=== PATIENT | male | born 1970 | race Caucasian/White ===

== ENCOUNTER → 2016-03-23 | Outpatient (REF) | payer OTHER ==
[~2016-03-23] MED LIST: /LOR25TA PO; GABA300C2 PO; IBUP80TA PO; OXYC5TAB2 PO; OXYCONTIN PO; PERC7.5T12 PO; PRED20TA PO; ULTR50TA PO; ZIPS25CA PO
[2016-03-23 13:06] LABS: ALBUMIN 3.3 GM/DL (3.2-5.2); ALKALINE PHOSPHATASE 89 U/L (45-117); ALT/SGPT 19 U/L (12-78); ANION GAP 9 MEQ/L (8-16); AST/SGOT 14 U/L (15-37); BILIRUBIN,TOTAL 0.3 MG/DL (0.2-1.0); BLOOD UREA NITROGEN 13 MG/DL (7-18); CALCIUM LEVEL 8.6 MG/DL (8.5-10.1); CARBON DIOXIDE LEVEL 27 MEQ/L (21-32); CHLORIDE LEVEL 107 MEQ/L (98-107); CREATININE FOR GFR 0.89 MG/DL (0.70-1.30); GLOMERULAR FILTRATION RATE > 60.0 (>60); GLUCOSE, FASTING 75 MG/DL (70-105); POTASSIUM SERUM 4.7 MEQ/L (3.5-5.1); SODIUM LEVEL 143 MEQ/L (136-145); TOTAL PROTEIN 6.3 GM/DL (6.4-8.2)
== END ==
LOC: M SFHCPLAZ 09:13
PROVIDERS: ATTEND Nurse Practitioner Family
DX: B35.1 Tinea unguium (principal)

== ENCOUNTER → 2016-05-05 | Outpatient (REF) | payer OTHER ==
[2016-05-05 11:48] LABS: ALBUMIN 3.2 GM/DL (3.2-5.2); ALBUMIN/GLOBULIN RATIO 1.07 (1.00-1.93); ALKALINE PHOSPHATASE 89 U/L (45-117); ALT/SGPT 25 U/L (12-78); ANION GAP 5 MEQ/L (8-16); AST/SGOT 19 U/L (15-37); BILIRUBIN,TOTAL 0.3 MG/DL (0.2-1.0); BLOOD UREA NITROGEN 16 MG/DL (7-18); CALCIUM LEVEL 8.4 MG/DL (8.5-10.1); CARBON DIOXIDE LEVEL 28 MEQ/L (21-32); CHLORIDE LEVEL 110 MEQ/L (98-107); CREATININE FOR GFR 0.87 MG/DL (0.70-1.30); GLOMERULAR FILTRATION RATE > 60.0 (>60); GLUCOSE, FASTING 110 MG/DL (70-105); POTASSIUM SERUM 4.5 MEQ/L (3.5-5.1); SODIUM LEVEL 143 MEQ/L (136-145); TOTAL PROTEIN 6.2 GM/DL (6.4-8.2)
== END ==
LOC: M SFHCPLAZ 10:19
PROVIDERS: ATTEND Nurse Practitioner Family
DX: B35.1 Tinea unguium (principal)

== ENCOUNTER → 2016-08-04 | Outpatient (REF) | payer OTHER ==
[2016-08-04 11:52] LABS: ALBUMIN 3.1 GM/DL (3.2-5.2); ALBUMIN/GLOBULIN RATIO 1.03 (1.00-1.93); ALKALINE PHOSPHATASE 85 U/L (45-117); ALT/SGPT 20 U/L (12-78); ANION GAP 7 MEQ/L (8-16); AST/SGOT 14 U/L (15-37); BILIRUBIN,TOTAL 0.3 MG/DL (0.2-1.0); BLOOD UREA NITROGEN 20 MG/DL (7-18); CALCIUM LEVEL 8.6 MG/DL (8.5-10.1); CARBON DIOXIDE LEVEL 29 MEQ/L (21-32); CHLORIDE LEVEL 107 MEQ/L (98-107); CREATININE FOR GFR 0.92 MG/DL (0.70-1.30); GLOMERULAR FILTRATION RATE > 60.0 (>60); GLUCOSE, FASTING 87 MG/DL (70-105); POTASSIUM SERUM 4.7 MEQ/L (3.5-5.1); SODIUM LEVEL 143 MEQ/L (136-145); TOTAL PROTEIN 6.1 GM/DL (6.4-8.2)
== END ==
LOC: M LABDRAW1 11:02
PROVIDERS: ATTEND Nurse Practitioner Family
DX: B35.1 Tinea unguium (principal)

== ENCOUNTER 2016-08-17 08:30 | Outpatient (RCR) | payer OTHER | END 2016-08-18 | disposition home or self-care (01) | LOC: M PT 08:30 | PROVIDERS: ATTEND Physical Medicine & Rehabilitation | DX: Z51.89 Encounter for other specified aftercare (principal); M54.5 Low back pain ==

== ENCOUNTER 2016-08-20 14:12 | Emergency (ER) | payer OTHER ==
[~2016-08-20] VITALS: Ht 170.2 cm; Wt 95.3 kg
[2016-08-20 14:12] VITALS: BP 135/86
[2016-08-20] MEDS ORDERED: MIRT45TA PO (14:52)
[2016-08-20] MEDS ORDERED: CYCL10TA (14:52)
[2016-08-20] MEDS ORDERED: TERB250T57 (14:52)
[2016-08-20] MEDS ORDERED: MEDR4PAK PO (15:12)
[2016-08-20] MEDS ORDERED: PERC5TAB6 PO (15:12)
== END 2016-08-20 15:36 | disposition home or self-care (01) ==
LOC: M ED 15:25
DX: M54.42 Lumbago with sciatica, left side (principal); M54.41 Lumbago with sciatica, right side

== ENCOUNTER 2016-08-26 16:12 | Emergency (ER) | payer OTHER ==
[~2016-08-26] VITALS: Ht 170.2 cm; Wt 93.0 kg
[~2016-08-26 16:12] MED LIST changes: +CYCL10TA; +MEDR4PAK PO; +MIRT45TA PO; +PERC5TAB6 PO; +TERB250T57
[2016-08-26] MEDS ORDERED: methylPREDNISolone INJ 125 MG/2 ML VIAL (J2930) IM ONE (17:15)
[2016-08-26] MEDS ORDERED: PRED50TA PO (17:41)
[2016-08-26] MEDS ORDERED: VALI5TAB PO (17:41)
[2016-08-26] MEDS ORDERED: KETOROLAC 60 MG/2 ML VIAL (J1885) IM ONE (18:00)
[2016-08-26 18:29] VITALS: BP 142/90
[2016-08-27] MEDS ORDERED: PERC5TAB6 PO (14:03)
[2016-08-27] MEDS ORDERED: MEDR4PAK PO (14:03)
== END 2016-08-26 18:34 | disposition home or self-care (01) ==
LOC: M ED 17:03
DX: M54.5 Low back pain (principal); G89.29 Other chronic pain

== ENCOUNTER 2016-08-27 12:38 | Emergency (ER) | payer OTHER ==
[~2016-08-27] VITALS: Ht 170.2 cm; Wt 92.1 kg
[2016-08-27 12:38] VITALS: BP 133/81
[~2016-08-27 12:38] MED LIST changes: +PRED50TA PO; +VALI5TAB PO
[2016-08-27] MEDS ORDERED: MEDR4PAK PO (14:03)
[2016-08-27] MEDS ORDERED: PERC5TAB6 PO (14:03)
== END 2016-08-27 14:11 | disposition home or self-care (01) ==
LOC: M ED 13:55
DX: M54.5 Low back pain (principal); G89.29 Other chronic pain

== ENCOUNTER 2016-09-17 18:58 | Emergency (ER) | payer OTHER ==
[~2016-09-17] VITALS: Ht 170.2 cm; Wt 90.6 kg
[2016-09-17 18:58] VITALS: BP 135/81
[~2016-09-17 18:58] MED LIST changes: +PERC5TAB12 PO; -PERC5TAB6 PO; +TERB250T12; -TERB250T57
[2016-09-17] MEDS ORDERED: HYDROmorphone HCL 1 MG/ML SYRINGE (J1170) IM ONE (19:30)
--- NOTE | 2016-09-17 20:16 | REP ---
Clinical: Trauma. Technique: AP, lateral views of the left foot Findings: The osseous structures and joint spaces are intact and normal. There is no evidence for acute fracture or dislocation. Surrounding soft tissues are unremarkable. No subcutaneous emphysema or radiodense foreign body. Impression: Normal examination. No acute fracture or dislocation. Signed by Navarro Jules MD 09/17/2016 08:07 P
--- NOTE | 2016-09-17 20:21 | REP ---
Clinical: Trauma. Technique: AP, lateral, coned-down views of the lumbosacral spine. Comparison: 08/14/2012. Findings: Moderate multilevel degenerative changes include osteophytosis, endplate sclerosis and minimal disc space narrowing. Findings are most pronounced at the L5-S1 level. Alignment and lordosis maintained. No acute fracture / compression injury or subluxation. Impression: Moderate multilevel degenerative changes. No acute fracture / compression injury or subluxation. Signed by Navarro Jules MD 09/17/2016 08:12 P
== END 2016-09-17 19:58 | disposition home or self-care (01) ==
LOC: M ED 18:58
DX: S39.012A Strain of muscle, fascia and tendon of lower back, initial encounter (principal); S90.32XA Contusion of left foot, initial encounter; W01.0XXA Fall on same level from slipping, tripping and stumbling without subsequent striking against object, initial encounter; Y92.018 Other place in single-family (private) house as the place of occurrence of the external cause; Y93.89 Activity, other specified; Y99.8 Other external cause status; G89.29 Other chronic pain; M54.9 Dorsalgia, unspecified; Z79.899 Other long term (current) drug therapy; Z91.040 Latex allergy status; Z91.018 Allergy to other foods; Z87.891 Personal history of nicotine dependence

== ENCOUNTER 2016-11-22 11:22 | Emergency (ER) | payer OTHER ==
[~2016-11-22] VITALS: Ht 167.6 cm; Wt 88.7 kg
[2016-11-22 11:23] VITALS: BP 155/89
== END 2016-11-22 12:32 | disposition left against medical advice (07) ==
LOC: M ED 11:22
DX: H57.10 Ocular pain, unspecified eye (principal); Z53.21 Procedure and treatment not carried out due to patient leaving prior to being seen by health care provider

== ENCOUNTER 2017-03-09 12:07 | Emergency (ER) | payer OTHER ==
[~2017-03-09] VITALS: Ht 167.6 cm; Wt 95.5 kg
[2017-03-09] MEDS ORDERED: NS 1,000 ML IV SCH (12:15)
[2017-03-09] MEDS ORDERED: ASPIRIN 81 MG CHEW TABLET PO ONE (12:15)
[2017-03-09] MEDS ORDERED: NITROGLYCERIN 0.4 MG SUBL TABLET SL PRN (12:15)
[2017-03-09] MEDS ORDERED: MORPHINE 4 MG/ML 1ML SYRINGE IV ONE ×2 (12:30→14:30)
[2017-03-09 12:39] LABS: BASO # 0.1 10^3/uL (0.0-0.2); BASO % 0.7 % (0.0-1.0); EOS # 0.3 10^3/uL (0.0-0.50); EOS % 2.7 % (0.0-3.0); IMMATURE GRANULOCYTE % 0.2 % (0-0); LYMPH # 3.8 10^3/uL (1.5-4.5); MEAN CORPUSCULAR HEMOGLOBIN 30.2 pg (27.0-33.0); MEAN CORPUSCULAR HGB CONC 35.6 g/dl (32.0-36.5); MEAN CORPUSCULAR VOLUME 84.9 fl (80.0-96.0); MONO # 0.9 10^3/uL (0.0-0.8); MONO % 9.6 % (0.0-5.0); NEUTROPHILS # 4.4 10^3/uL (1.8-7.7); NEUTROPHILS % 46.8 % (36.0-66.0); PLATELET COUNT, AUTOMATED 284 10^3/uL (150-450); RED CELL DISTRIBUTION WIDTH 12.8 % (11.5-14.5); WHITE BLOOD COUNT 9.4 10^3/uL (4.0-10.0)
[2017-03-09 12:50] LABS: INR 0.99
[2017-03-09 13:06] LABS: ALBUMIN 3.5 GM/DL (3.2-5.2); ALKALINE PHOSPHATASE 89 U/L (45-117); ALT/SGPT 17 U/L (12-78); ANION GAP 3 MEQ/L (8-16); AST/SGOT 19 U/L (7-37); BILIRUBIN,DIRECT < 0.1 MG/DL (0.0-0.2); BILIRUBIN,TOTAL 0.3 MG/DL (0.2-1.0); BLOOD UREA NITROGEN 13 MG/DL (7-18); CALCIUM LEVEL 8.9 MG/DL (8.5-10.1); CARBON DIOXIDE LEVEL 29 MEQ/L (21-32); CHLORIDE LEVEL 105 MEQ/L (98-107); CREATININE FOR GFR 0.86 MG/DL (0.70-1.30); GLOMERULAR FILTRATION RATE > 60.0 (>60); GLUCOSE, FASTING 100 MG/DL (70-105); POTASSIUM SERUM 4.2 MEQ/L (3.5-5.1); SODIUM LEVEL 137 MEQ/L (136-145); TOTAL PROTEIN 7.4 GM/DL (6.4-8.2)
[2017-03-09] MEDS ORDERED: ISOVUE-370 76% 100ML VIAL (Q9967) As Ordered ONE (13:37)
[2017-03-09] MEDS ORDERED: NORCOTAB PO (15:01)
[2017-03-09 15:47] VITALS: BP 138/85
--- NOTE | 2017-03-09 19:36 | ECGEPIP ---
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
--- NOTE | 2017-03-09 19:53 | REP ---
CHEST, TWO VIEWS: There is no evidence of acute infiltrate. No pleural effusion is seen. The heart is normal in size. The mediastinal silhouette is unremarkable. The visualized osseous structures are intact. IMPRESSION: No acute pulmonary disease. Signed by Fazal Aguilar MD 03/10/2017 08:31 P
--- NOTE | 2017-03-09 20:49 | REP ---
CT pulmonary angiogram: With IV contrast. History: Left-sided chest pain. Question pulmonary embolus. Comparison studies: Today's chest x-ray. Contrast dose: 75 cc's of Isovue [address] technique: Helical scanning is acquired and overlapping 1.5 mm and contiguous 3 mm axial images are reformatted. In addition, a 3-D work station is deployed to generate thick slab maximum intensity projection images in sagittal and coronal imaging projections. CT pulmonary angiographic findings: There is good opacification of the pulmonary arterial tree. There is no CT evidence of pulmonary embolism. There are granulomatous calcified lymph nodes in the right hilus. There are granulomatous calcifications in the right lung and in the spleen. No significant pulmonary nodule or mass lesion is seen. There is a small pleural-based nodule in the major fissure on the left. This is not felt to be suspicious. No infiltrate is seen. No pleural or pericardial effusion is seen. No adrenal lesion is observed. The thoracic aorta enhances homogeneously and is normal in coarse, caliber and contour. No bony destructive lesion is appreciated. Impression: Old granulomatous calcifications. No CT evidence of pulmonary embolism. No other significant abnormality. Signed by Christopher Cornejo MD 03/10/2017 08:07 A
[2017-03-10] MEDS ORDERED: PENI250T57 PO (22:54)
[2017-03-10] MEDS ORDERED: PENI500T PO (22:59)
== END 2017-03-09 15:49 | disposition home or self-care (01) ==
LOC: M ED 12:07
DX: R07.89 Other chest pain (principal); M54.9 Dorsalgia, unspecified; G89.29 Other chronic pain; F17.210 Nicotine dependence, cigarettes, uncomplicated; Z79.899 Other long term (current) drug therapy; Z91.040 Latex allergy status; Z91.018 Allergy to other foods
CPT/HCPCS: 71020; 71275; 80048; 80076; 82550; 82553; 83690; 83880; 84443; 85025; 85379; 85610; 93005; 93041; 94760; 96374; 96376; 99285; Q9967

== ENCOUNTER 2017-03-10 19:44 | Emergency (ER) | payer OTHER ==
[~2017-03-10] VITALS: Ht 167.6 cm; Wt 93.2 kg
[~2017-03-10 19:44] MED LIST changes: +NORCOTAB PO
[2017-03-10 19:45] VITALS: BP 157/82
[2017-03-10] MEDS ORDERED: ASPIRIN 81 MG CHEW TABLET PO ONE (20:30)
[2017-03-10] MEDS ORDERED: GASTROGRAFIN SOLUTION 30ML (Q9963) PO ONE ×2 (20:45→21:15)
[2017-03-10 20:51] LABS: BASO # 0.1 10^3/uL (0.0-0.2); BASO % 0.8 % (0.0-1.0); EOS # 0.4 10^3/uL (0.0-0.50); IMMATURE GRANULOCYTE % 0.2 % (0-0); LYMPH # 3.1 10^3/uL (1.5-4.5); LYMPH % 35.5 % (24.0-44.0); MEAN CORPUSCULAR HEMOGLOBIN 29.5 pg (27.0-33.0); MEAN CORPUSCULAR HGB CONC 34.5 g/dl (32.0-36.5); MEAN CORPUSCULAR VOLUME 85.5 fl (80.0-96.0); MONO # 0.8 10^3/uL (0.0-0.8); MONO % 9.1 % (0.0-5.0); NEUTROPHILS # 4.4 10^3/uL (1.8-7.7); NEUTROPHILS % 50.4 % (36.0-66.0); PLATELET COUNT, AUTOMATED 274 10^3/uL (150-450); RED CELL DISTRIBUTION WIDTH 12.8 % (11.5-14.5); WHITE BLOOD COUNT 8.7 10^3/uL (4.0-10.0)
[2017-03-10] MEDS: MORPHINE 4 MG/ML 1ML SYRINGE IV PRN ×2 (20:56→22:07)
--- NOTE | 2017-03-10 21:00 | REPUSA ---
Clinical history: Chest pain. Comparison: None. Findings: Frontal and lateral views of the chest were obtained. The mediastinum and cardiac silhouett e are within normal limits. The lungs are clear. No pleural effusion or pneumothorax is seen. The oss eous structures and soft tissues are unremarkable. Impression: No acute disease.
[2017-03-10 21:22] LABS: ALBUMIN 3.3 GM/DL (3.2-5.2); ALBUMIN/GLOBULIN RATIO 0.92 (1.00-1.93); ALKALINE PHOSPHATASE 80 U/L (45-117); ALT/SGPT 16 U/L (12-78); ANION GAP 5 MEQ/L (8-16); AST/SGOT 13 U/L (7-37); BILIRUBIN,DIRECT < 0.1 MG/DL (0.0-0.2); BILIRUBIN,TOTAL 0.2 MG/DL (0.2-1.0); BLOOD UREA NITROGEN 13 MG/DL (7-18); CALCIUM LEVEL 8.4 MG/DL (8.5-10.1); CARBON DIOXIDE LEVEL 29 MEQ/L (21-32); CHLORIDE LEVEL 106 MEQ/L (98-107); CREATININE FOR GFR 0.92 MG/DL (0.70-1.30); GLOMERULAR FILTRATION RATE > 60.0 (>60); GLUCOSE, FASTING 83 MG/DL (70-105); POTASSIUM SERUM 4.4 MEQ/L (3.5-5.1); SODIUM LEVEL 140 MEQ/L (136-145); TOTAL PROTEIN 6.9 GM/DL (6.4-8.2)
--- NOTE | 2017-03-10 22:40 | REPUSA ---
CT of the abdomen and pelvis without contrast Clinical statement: Pain. Technique: Multiple axial CT images were obtained from the base of the lungs to the floor of the pelv is utilizing 5 mm axial slices after administration of oral of contrast. Coronal and sagittal reconst ructions were also obtained. Comparison: 10/24/2014.. Findings: Chest: The visualized lung bases are clear. Abdomen: The kidneys are normal in size bilaterally. There is no evidence of hydronephrosis or nephro lithiasis. The liver, spleen, pancreas, gallbladder and adrenal glands are unremarkable. The aorta de monstrates normal caliber and contour. There is no abdominal lymphadenopathy or ascites. Pelvis: The bowel is unremarkable, with no obstructive or inflammatory changes. The appendix is abby l. The urinary bladder is within normal limits. There is no pelvic lymphadenopathy or ascites. The ot her pelvic structures appear unremarkable. Bones: There are no suspicious osseous abnormalities seen. Impression: Unremarkable CT examination of the abdomen and pelvis.
[2017-03-10] MEDS ORDERED: PENICILLIN V POTASSIUM 500 MG TAB PO ONE (22:45)
[2017-03-10] MEDS ORDERED: PENI250T57 PO (22:54)
[2017-03-10] MEDS ORDERED: PENI500T PO (22:59)
--- NOTE | 2017-03-11 17:01 | ECGEPIP ---
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
== END 2017-03-10 23:04 | disposition home or self-care (01) ==
LOC: M ED 19:44
DX: R07.9 Chest pain, unspecified (principal); K02.9 Dental caries, unspecified; K01.1 Impacted teeth; M54.40 Lumbago with sciatica, unspecified side; F17.210 Nicotine dependence, cigarettes, uncomplicated; Z79.899 Other long term (current) drug therapy; Z91.040 Latex allergy status; Z91.018 Allergy to other foods; Z80.0 Family history of malignant neoplasm of digestive organs
CPT/HCPCS: 71020; 74176; 80048; 80076; 82550; 82553; 83690; 85025; 93005; 93041; 94760; 96374; 96376; 99284; Q9963

== ENCOUNTER → 2017-05-02 | Outpatient (CLI) | payer OTHER ==
[2017-05-02 09:24] LABS: HEMATOCRIT 45.4 % (42.0-52.0); HEMOGLOBIN 15.6 g/dl (14.0-18.0); MEAN CORPUSCULAR HEMOGLOBIN 29.5 pg (27.0-33.0); MEAN CORPUSCULAR HGB CONC 34.4 g/dl (32.0-36.5); PLATELET COUNT, AUTOMATED 277 10^3/uL (150-450); RED BLOOD COUNT 5.28 10^6/uL (4.30-6.10); RED CELL DISTRIBUTION WIDTH 13.1 % (11.5-14.5); WHITE BLOOD COUNT 10.6 10^3/uL (4.0-10.0)
[2017-05-02 09:56] LABS: ESTIMATED AVERAGE GLUCOSE 105 MG/DL (60-110); HEMOGLOBIN A1c 5.3 %
[2017-05-02 10:59] LABS: ALBUMIN 3.4 GM/DL (3.2-5.2); ALBUMIN/GLOBULIN RATIO 1.13 (1.00-1.93); ALKALINE PHOSPHATASE 81 U/L (45-117); ALT/SGPT 16 U/L (12-78); ANION GAP 5 MEQ/L (8-16); AST/SGOT 17 U/L (7-37); BILIRUBIN,TOTAL 0.3 MG/DL (0.2-1.0); BLOOD UREA NITROGEN 15 MG/DL (7-18); CALCIUM LEVEL 8.4 MG/DL (8.5-10.1); CARBON DIOXIDE LEVEL 27 MEQ/L (21-32); CHLORIDE LEVEL 108 MEQ/L (98-107); CHOLESTEROL LEVEL 184 MG/DL (<200); CREATININE FOR GFR 0.84 MG/DL (0.70-1.30); GLOMERULAR FILTRATION RATE > 60.0 (>60); GLUCOSE, FASTING 103 MG/DL (70-100); HDL CHOLESTEROL 42 MG/DL (>40); LDL CHOLESTEROL 119.4 MG/DL (<100); NON-HDL-C 142 MG/DL; POTASSIUM SERUM 4.7 MEQ/L (3.5-5.1); PROSTATIC SPECIFIC AG MONITOR 1.16 NG/ML (< 4.0); SODIUM LEVEL 140 MEQ/L (136-145); THYROID STIMULATING HORMONE 0.524 uIU/ML (0.358-3.740); THYROXINE (T4) 9.6 UG/DL (4.5-12.0); TOTAL PROTEIN 6.4 GM/DL (6.4-8.2); TRIGLYCERIDES LEVEL 113 MG/DL (<150)
[2017-05-02 11:01] LABS: TOTAL T3 135.6 NG/DL (60.0-181.0)
== END ==
LOC: M LAB 08:35
DX: I10 Essential (primary) hypertension (principal)
CPT/HCPCS: 71046

== ENCOUNTER → 2017-09-29 | Outpatient (REF) | payer OTHER | LOC: M SFHCLERA 12:58 | DX: R82.90 Unspecified abnormal findings in urine (principal) ==

== ENCOUNTER → 2017-09-29 | Outpatient (CLI) | payer OTHER | LOC: M LRY 12:23 | DX: R07.89 Other chest pain (principal) | CPT/HCPCS: 71046 ==

== ENCOUNTER 2018-03-09 09:39 | Emergency (ER) | payer OTHER | END 2018-03-09 11:23 | disposition left against medical advice (07) | LOC: M ED 09:39 | DX: F41.9 Anxiety disorder, unspecified (principal); Z53.21 Procedure and treatment not carried out due to patient leaving prior to being seen by health care provider ==

== ENCOUNTER 2018-03-11 16:13 | Emergency (ER) | payer OTHER ==
[~2018-03-11] VITALS: Ht 165.1 cm; Wt 95.5 kg
[~2018-03-11 16:13] MED LIST changes: +ALPR1TAB3 PO; +CEFD1CAP8 PO; -MIRT45TA PO; +MIRT45TA4 PO; +OXYC1TAB15 PO; +PENI250T57 PO; +PENI500T PO
--- NOTE | 2018-03-11 16:49 | REP ---
Clinical: Altered mental status . Comparison: 09/29/2017. Findings: The mediastinum and cardiac silhouette are stable and within normal limits for portable technique. The lung goddard demonstrate chronic interstitial changes without acute consolidation, effusion, or pneumothorax. Skeletal structures are intact. Impression: No acute cardiopulmonary process appreciated. Electronically Signed by Navarro Jules MD 03/11/2018 04:41 P
--- NOTE | 2018-03-11 16:51 | REP ---
Clinical: Altered mental status . Comparison: None . Findings: The ventricles, sulci, and cisterns are normal in position and appearance. Aguilar-white differentiation is maintained. No acute intracranial hemorrhage, mass/mass effect, pathology or trauma/injury. No evidence for acute infarction. No extra-axial fluid collection. Calvarium is intact. Paranasal sinuses and mastoid air cells are clear. Impression: Normal noncontrast head CT. No evidence for acute intracranial pathology or trauma/injury. Electronically Signed by Navarro Jules MD 03/11/2018 04:42 P
[2018-03-11 17:12] LABS: BASO # 0.1 10^3/uL (0.0-0.2); BASO % 0.6 % (0.0-1.0); EOS # 0.1 10^3/uL (0.0-0.50); EOS % 0.8 % (0.0-3.0); HEMATOCRIT 42.1 % (42.0-52.0); HEMOGLOBIN 14.9 g/dl (13.5-17.5); LYMPH % 29.7 % (24.0-44.0); MEAN CORPUSCULAR HEMOGLOBIN 30.5 pg (27.0-33.0); MEAN CORPUSCULAR HGB CONC 35.4 g/dl (32.0-36.5); MEAN CORPUSCULAR VOLUME 86.3 fl (80.0-96.0); MONO # 1.2 10^3/uL (0.0-0.8); MONO % 9.3 % (0.0-5.0); NEUTROPHILS # 7.9 10^3/uL (1.8-7.7); NEUTROPHILS % 59.4 % (36.0-66.0); PLATELET COUNT, AUTOMATED 336 10^3/uL (150-450); RED BLOOD COUNT 4.88 10^6/uL (4.30-6.10); WHITE BLOOD COUNT 13.3 10^3/uL (4.0-10.0)
[2018-03-11] MEDS ORDERED: LORazepam 2 MG/ML VIAL (J2060) IV STA ×2 (17:17→17:30)
[2018-03-11 17:49] LABS: AMPHETAMINES LEVEL URINE NEGATIVE (NEGATIVE); BARBITURATES URINE NEGATIVE (NEGATIVE); BENZODIAZEPINES URINE POSITIVE (NEGATIVE); CANNABINOIDS URINE NEGATIVE (NEGATIVE); COCAINE METABOLITE URINE NEGATIVE (NEGATIVE); METHADONE URINE NEGATIVE (NEGATIVE); OPIATES URINE POSITIVE (NEGATIVE); PHENCYCLIDINE URINE NEGATIVE (NEGATIVE)
[2018-03-11 17:52] LABS: ACETAMINOPHEN LEVEL < 2.0 UG/ML (10.0-30.0); ALBUMIN 3.4 GM/DL (3.2-5.2); ALT/SGPT 14 U/L (12-78); BILIRUBIN,DIRECT < 0.1 MG/DL (0.0-0.2); BILIRUBIN,TOTAL 0.3 MG/DL (0.2-1.0); BLOOD UREA NITROGEN 15 MG/DL (7-18); CALCIUM LEVEL 8.6 MG/DL (8.5-10.1); CARBON DIOXIDE LEVEL 26 MEQ/L (21-32); CHLORIDE LEVEL 107 MEQ/L (98-107); CK-MB VALUE MASS < 1.0 NG/ML (<3.6); CPK CREATINE PHOSPHOKINASE 50 U/L (39-308); CREATININE FOR GFR 0.84 MG/DL (0.70-1.30); ETHYL ALCOHOL (ETHANOL) < 0.003 % (0.000-0.010); GLOMERULAR FILTRATION RATE > 60.0 (>60); GLUCOSE, FASTING 92 MG/DL (70-100); POTASSIUM SERUM 3.9 MEQ/L (3.5-5.1); SALICYLATE LEVEL 3.6 MG/DL (5.0-30.0); SODIUM LEVEL 142 MEQ/L (136-145); TOTAL PROTEIN 6.5 GM/DL (6.4-8.2); TROPONIN I < 0.02 NG/ML (< 0.10)
--- NOTE | 2018-03-11 18:48 | REP ---
Clinical: Recent head injury with subsequent headaches and weakness. Technique: Standard noncontrast MRI of the brain. Findings: The ventricles, sulci, and cisterns are symmetric and normal. Aguilar-white differentiation is maintained. No abnormal signal intensity foci are identified. No evidence for mass or mass effect. No intracranial hemorrhage. No extra-axial collection. No evidence for acute infarction or trauma/injury. Impression: Negative noncontrast MRI of the brain. No evidence for acute intracranial pathology. No evidence for acute intracranial trauma/injury. Electronically Signed by Navarro Jules MD 03/11/2018 06:40 P
[2018-03-11 19:05] VITALS: BP 131/78
--- NOTE | 2018-03-11 20:20 | ECGEPIP ---
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
== END 2018-03-11 19:18 | disposition home or self-care (01) ==
LOC: M ED 16:13
DX: S06.0X0A Concussion without loss of consciousness, initial encounter (principal); R20.2 Paresthesia of skin; W22.8XXA Striking against or struck by other objects, initial encounter; Y92.9 Unspecified place or not applicable; Y93.01 Activity, walking, marching and hiking; Y99.0 Civilian activity done for income or pay; Z79.899 Other long term (current) drug therapy; Z91.040 Latex allergy status; Z91.018 Allergy to other foods
CPT/HCPCS: 70450; 70551; 71045; 80048; 80076; 80307; 82140; 82550; 82553; 84443; 85025; 87486; 87581; 87633; 87798; 93005; 93041; 94760; 96374; 99284; G0480; J2060

== ENCOUNTER → 2018-04-05 | Outpatient (CLI) | payer OTHER ==
--- NOTE | 2018-04-06 08:49 | REP ---
MR BRAIN WITHOUT CONTRAST: HISTORY: Headache. COMPARISON: 03/11/2018. There are no areas of abnormal signal intensity in the brain. There is no intraparenchymal hemorrhage, infarct, mass, or midline shift. The ventricular system is normal in appearance. There is no extracerebral collection. Mucosal thickening is present in the maxillary sinuses. IMPRESSION: There is no intracranial lesion. Electronically Signed by Oscar Young MD 04/06/2018 08:50 A
== END ==
LOC: M RAD 17:45
PROVIDERS: ATTEND Family Medicine
DX: R51 Headache (principal)

== ENCOUNTER 2018-08-26 09:00 | Emergency (ER) | payer MEDICAID, OTHER, SELFPAY ==
[~2018-08-26] VITALS: Ht 165.1 cm; Wt 80.0 kg
[~2018-08-26 09:00] MED LIST changes: +HYDR-3715 PO; -NORCOTAB PO
[2018-08-26 09:02] VITALS: BP 140/77
[2018-08-26] MEDS ORDERED: GABAPENTIN 300 MG CAP PO ONE (10:00)
[2018-08-26] MEDS ORDERED: METHOCARBAMOL 750 MG TAB PO ONE (10:00)
--- NOTE | 2018-08-26 10:39 | REP ---
CT LUMBAR SPINE WITHOUT CONTRAST: HISTORY: Right leg numbness. COMPARISON: MR 08/27/2016. There is no disc bulge or herniation at the L1-2 level. The L1 nerves exit the neural foraminal without compression. A diffuse disc bulge is present at the L2-3 level. There is minimal compression of the thecal sac. The L2 nerves exit the neural foramina without compression. A diffuse disc bulge is present at the L3-4 level. There is minimal compression of the thecal sac. The L3 nerves exit the neural foramina without compression. A diffuse disc bulge and small left paracentral disc protrusion are present at the L4-5 level. There is minimal compression of the thecal sac. The L4 nerves exit the neural foramina without compression. A diffuse disc bulge and small central disc protrusion are present at the L5-S1 level. There is minimal compression of the thecal sac. There is compression of the L5 nerves in the neural foramina. The L1-2, L4-5 and L5-S1 vertebral discs are decreased in height consistent with disc degeneration. There is no fracture or subluxation. IMPRESSION: 1. Diffuse disc bulges at the L2-3 and L3-4 levels with minimal thecal sac compression. The disc bulge at the L3-4 level is a new finding. 2. Decreased disc bulge and small disc protrusion at the L4-5 level with minimal compression of the thecal sac. 3. Diffuse disc bulge and small central disc protrusion at the L5-S1 level with minimal thecal sac compression. There is compression of the L5 nerves in the neural foramina. Electronically Signed by Oscar Young MD 08/26/2018 10:43 A
--- NOTE | 2018-08-29 12:47 | ED PDOC ---
Post-Departure Follow-Up dr prado faxed formal report of ct ls spine for fu Owen Coles MD Aug 29, 2018 12:47
== END 2018-08-26 10:58 | disposition left against medical advice (07) ==
LOC: M ED 09:00
DX: M51.16 Intervertebral disc disorders with radiculopathy, lumbar region (principal); R20.2 Paresthesia of skin; M54.9 Dorsalgia, unspecified; G89.29 Other chronic pain; F41.9 Anxiety disorder, unspecified; F17.210 Nicotine dependence, cigarettes, uncomplicated; Z79.899 Other long term (current) drug therapy; Z79.891 Long term (current) use of opiate analgesic; Z91.040 Latex allergy status; Z91.018 Allergy to other foods; Z91.81 History of falling

== ENCOUNTER 2020-11-04 10:46 | Emergency (ER) | payer OTHER, MEDICAID ==
[~2020-11-04] VITALS: Ht 167.6 cm; Wt 72.0 kg
[2020-11-04 10:46] VITALS: BP 141/89
[~2020-11-04 10:46] MED LIST changes: +CYCL-707; -CYCL10TA; -OXYC1TAB15 PO; +OXYC7.5T3 PO
== END 2020-11-04 12:58 | disposition home or self-care (01) ==
LOC: M ED 10:46
DX: F43.0 Acute stress reaction (principal); F33.9 Major depressive disorder, recurrent, unspecified; Z91.018 Allergy to other foods; Z91.040 Latex allergy status; F17.210 Nicotine dependence, cigarettes, uncomplicated

== ENCOUNTER 2020-11-22 20:24 | Emergency (ER) | payer OTHER, MEDICAID ==
[~2020-11-22] VITALS: Ht 162.6 cm; Wt 72.7 kg
[2020-11-22 20:25] VITALS: BP 126/78
[2020-11-22] MEDS ORDERED: APAP325T4 PO (20:51)
[2020-11-22] MEDS ORDERED: NS 1,000 ML IV ONE (23:05)
[2020-11-22] MEDS ORDERED: MORPHINE 2 MG/ML 1ML VIAL (J2270) IV PRN (23:05)
[2020-11-22] MEDS ORDERED: ONDANSETRON 4MG/2ML VIAL IV ONE (23:05)
[2020-11-23 00:12] LABS: BASO # 0.1 10^3/uL (0.0-0.2); BASO % 0.4 % (0.0-1.0); EOS % 0.3 % (0.0-3.0); HEMATOCRIT 42.3 % (42.0-52.0); HEMOGLOBIN 14.7 g/dl (13.5-17.5); LYMPH # 1.8 10^3/uL (1.5-5.0); LYMPH % 14.3 % (24.0-44.0); MEAN CORPUSCULAR HEMOGLOBIN 29.8 pg (27.0-33.0); MEAN CORPUSCULAR HGB CONC 34.8 g/dl (32.0-36.5); MEAN CORPUSCULAR VOLUME 85.8 fl (80.0-96.0); MONO # 0.9 10^3/uL (0.0-0.8); MONO % 7.3 % (2.0-8.0); NEUTROPHILS # 9.8 10^3/uL (1.5-8.5); NEUTROPHILS % 77.3 % (36.0-66.0); PLATELET COUNT, AUTOMATED 293 10^3/uL (150-450); RED BLOOD COUNT 4.93 10^6/uL (4.30-6.10); WHITE BLOOD COUNT 12.7 10^3/uL (4.0-10.0)
[2020-11-23 01:05] LABS: ALBUMIN 3.2 GM/DL (3.2-5.2); ALT/SGPT 21 U/L (12-78); BILIRUBIN,DIRECT 0.2 MG/DL (0.0-0.2); BILIRUBIN,TOTAL 0.5 MG/DL (0.2-1.0); BLOOD UREA NITROGEN 18 MG/DL (7-18); CARBON DIOXIDE LEVEL 26 MEQ/L (21-32); CHLORIDE LEVEL 107 MEQ/L (98-107); CREATININE FOR GFR 0.67 MG/DL (0.70-1.30); GLOMERULAR FILTRATION RATE > 60.0 (>60); GLUCOSE, FASTING 103 MG/DL (70-100); LIPASE 70 U/L (73-393); POTASSIUM SERUM 3.9 MEQ/L (3.5-5.1); SODIUM LEVEL 140 MEQ/L (136-145); TOTAL PROTEIN 6.5 GM/DL (6.4-8.2)
[2020-11-23] MEDS ORDERED: ISOVUE-370 76% 100ML VIAL As Ordered ONE (01:10)
--- NOTE | 2020-11-23 01:39 | REPVR ---
PROCEDURE INFORMATION: Exam: CT Lumbar Spine Without Contrast Exam date and time: 11/23/2020 1:15 AM Age: 50 years old Clinical indication: Other: Recent trauma, h/o l2, l3 fracture 11/15/20 TECHNIQUE: Imaging protocol: Computed tomography images of the lumbar spine without contrast. Radiation optimization: All CT scans at this facility use at least one of these dose optimization techniques: automated exposure control; mA and/or kV adjustment per patient size (includes targeted exams where dose is matched to clinical indication); or iterative reconstruction. COMPARISON: CT Spine, lumbar w/o contrast 08/26/2018 9:50 AM FINDINGS: Vertebrae: No segmental lumbar vertebral malalignment. Minimal superior endplate compression deformities L2 and L3 with minimal anterior height loss and no posterior height loss. There is also a horizontal acute appearing fracture involving the inferior aspect of the L1 spinous process, best seen on sagittal images. No other posterior element or vertebral fracture involving L1 Discs/Spinal canal/Neural foramina: Degenerative changes are seen in the lumbar spine with disc height loss, endplate osteophytes and hypertrophic facet arthropathy. Vasculature: No dilatation of the imaged distal abdominal aorta. Soft tissues: No significant soft tissue abnormality of the imaged retroperitoneum. IMPRESSION: 1. Acute minimal superior endplate compression deformities of L2 and L3 with minimal anterior height loss and no spinal canal or posterior element involvement. 2. Horizontal isolated spinous process fracture of L1 which also has acute appearing margins Electronically signed by: Jaison Yao On 11/23/2020 01:38:34 AM
--- NOTE | 2020-11-23 01:43 | REPVR ---
PROCEDURE INFORMATION: Exam: CT Abdomen And Pelvis With Contrast Exam date and time: 11/23/2020 1:15 AM Age: 50 years old Clinical indication: Other: Rlq pain TECHNIQUE: Imaging protocol: Computed tomography of the abdomen and pelvis with contrast. Radiation optimization: All CT scans at this facility use at least one of these dose optimization techniques: automated exposure control; mA and/or kV adjustment per patient size (includes targeted exams where dose is matched to clinical indication); or iterative reconstruction. Contrast material: ISOVUE 370; Contrast volume: 100 ml; Contrast route: INTRAVENOUS (IV); COMPARISON: CT ABD/PEL W/PO CONTRAST ONLY 03/10/2017 10:09 PM FINDINGS: Lungs: Lung bases are unremarkable aside from a benign calcified right lower lobe granuloma. Liver: Liver appears normal with no focal abnormality. Gallbladder and bile ducts: Gallbladder is present and shows no evidence of gallstone. Pancreas: Pancreas appears normal. No focal mass or peripancreatic inflammation. Spleen: Spleen appears homogeneous without focal mass. Adrenal glands: Adrenal glands are normal in appearance. Kidneys and ureters: Kidneys appear normal, with no stone, solid mass or hydronephrosis. Stomach and bowel: Prominent gastric rugae and mucosa symmetrically. No focal mass. Appearance is similar compared to a prior CT from February 2017. No evidence of small bowel obstruction. Large volume of stool is seen throughout the colon. No evidence of acute diverticulitis. Appendix: Appendix is not seen. No RLQ inflammation to suggest appendicitis. Intraperitoneal space: No pneumoperitoneum. Vasculature: No aortic aneurysm. Main portal and splenic veins enhance normally. Lymph nodes: Unremarkable. No enlarged lymph nodes. Urinary bladder: Urinary bladder appears normal. Reproductive: Prostate gland is diffusely enlarged. Bones/joints: Minimal superior endplate deformities L2 and L3, and isolated inferior spinous process fracture of L1. Soft tissues: Unremarkable. IMPRESSION: 1. No explanation for right lower quadrant pain. Appendix is not visualized unfortunately and I cannot exclude appendicitis although no secondary signs are seen. 2. Lumbar spine deformities at L1 through L3 which were discussed in greater detail on the lumbar spine CT report. Electronically signed by: Jaison Yao On 11/23/2020 01:43:22 AM
--- NOTE | 2020-11-23 07:49 | ED PDOC ---
Post-Departure Follow-Up radiology repor tfaxed to Sherry Rausch MD Nov 23, 2020 07:49
== END 2020-11-23 03:18 | disposition left against medical advice (07) ==
LOC: M ED 20:24
DX: M54.5 Low back pain (principal); F33.9 Major depressive disorder, recurrent, unspecified; F41.9 Anxiety disorder, unspecified; Z91.018 Allergy to other foods; Z91.040 Latex allergy status; F17.210 Nicotine dependence, cigarettes, uncomplicated
CPT/HCPCS: 36415; 72131; 74177; 80048; 80076; 83605; 83690; 85025; 93041; 96361; 96374; 96375; 99284; J2270; J2405; Q9967

== ENCOUNTER 2021-03-17 07:10 | Emergency (ER) | payer MEDICAID, OTHER ==
[~2021-03-17] VITALS: Ht 170.2 cm; Wt 65.9 kg
[~2021-03-17 07:10] MED LIST changes: +APAP325T4 PO; -TERB250T12; +TERB250T91
[2021-03-17] MEDS ORDERED: KETOROLAC 30 MG/ML 1ML VIAL IV ONE ×2 (07:40→10:35)
[2021-03-17] MEDS ORDERED: NS 1,000 ML IV ONE (07:40)
[2021-03-17] MEDS ORDERED: METOCLOPRAMIDE INJ 10MG/2ML VIAL (J2765 PER 1) IV ONE (07:40)
[2021-03-17 07:54] LABS: BASO # 0.1 10^3/uL (0.0-0.2); BASO % 0.7 % (0.0-1.0); EOS # 0.3 10^3/uL (0.0-0.5); EOS % 2.9 % (0.0-3.0); HEMATOCRIT 41.7 % (42.0-52.0); HEMOGLOBIN 14.3 g/dl (13.5-17.5); LYMPH # 2.3 10^3/uL (1.5-5.0); LYMPH % 22.1 % (24.0-44.0); MEAN CORPUSCULAR HEMOGLOBIN 30.2 pg (27.0-33.0); MEAN CORPUSCULAR HGB CONC 34.3 g/dl (32.0-36.5); MONO # 0.6 10^3/uL (0.0-0.8); MONO % 5.8 % (2.0-8.0); NEUTROPHILS # 7.2 10^3/uL (1.5-8.5); NEUTROPHILS % 68.2 % (36.0-66.0); PLATELET COUNT, AUTOMATED 258 10^3/uL (150-450); RED BLOOD COUNT 4.74 10^6/uL (4.30-6.10); WHITE BLOOD COUNT 10.5 10^3/uL (4.0-10.0)
--- NOTE | 2021-03-17 08:34 | REP ---
INDICATION: altered COMPARISON: 03/11/2018 TECHNIQUE: Axial noncontrast images from the skull base to the vertex with coronal reformations. This CT examination was performed using the following dose reduction techniques: Automated exposure control, adjustment of mA and/or kv according to the patient's size, and use of iterative reconstruction technique. FINDINGS: The ventricles, sulci, and cisterns are normal in position and appearance. Aguilar-white differentiation is maintained. No acute intracranial hemorrhage, mass/mass effect, pathology or trauma/injury. No evidence for acute infarction. No extra-axial fluid collection. Calvarium is intact. Partial opacification to the ethmoid air cells is nonspecific. IMPRESSION: No evidence for acute intracranial pathology or trauma/injury. <Electronically signed by Navarro Jules > 03/17/21 1623
[2021-03-17 08:36] LABS: ACETAMINOPHEN LEVEL < 2.0 UG/ML (10.0-30.0); ALBUMIN 3.6 GM/DL (3.2-5.2); ALT/SGPT 18 U/L (12-78); BILIRUBIN,DIRECT 0.1 MG/DL (0.0-0.2); BILIRUBIN,TOTAL 0.5 MG/DL (0.2-1.0); BLOOD UREA NITROGEN 14 MG/DL (7-18); CALCIUM LEVEL 9.2 MG/DL (8.5-10.1); CARBON DIOXIDE LEVEL 25 MEQ/L (21-32); CHLORIDE LEVEL 108 MEQ/L (98-107); CREATININE FOR GFR 0.87 MG/DL (0.70-1.30); ETHYL ALCOHOL (ETHANOL) < 0.003 % (0.000-0.010); GLOMERULAR FILTRATION RATE > 60.0 (>60); GLUCOSE, FASTING 115 MG/DL (70-100); POTASSIUM SERUM 4.1 MEQ/L (3.5-5.1); SALICYLATE LEVEL 3.8 MG/DL (5.0-30.0); SODIUM LEVEL 140 MEQ/L (136-145); THYROID STIMULATING HORMONE 0.225 uIU/ML (0.358-3.740); TOTAL PROTEIN 6.9 GM/DL (6.4-8.2)
[2021-03-17 08:39] LABS: AMPHETAMINES LEVEL URINE NEGATIVE (NEGATIVE); BARBITURATES URINE NEGATIVE (NEGATIVE); BENZODIAZEPINES URINE NEGATIVE (NEGATIVE); CANNABINOIDS URINE NEGATIVE (NEGATIVE); COCAINE METABOLITE URINE NEGATIVE (NEGATIVE); METHADONE URINE NEGATIVE (NEGATIVE); OPIATES URINE NEGATIVE (NEGATIVE); PHENCYCLIDINE URINE NEGATIVE (NEGATIVE)
[2021-03-17] MEDS ORDERED: cloNIDine HCL 0.3 MG/24 HR PATCH TOP SCH (09:00)
[2021-03-17 10:25] LABS: RSV AMPLIFICATION NEGATIVE (NEGATIVE)
[2021-03-17 11:19] VITALS: BP 134/80
--- NOTE | 2021-03-17 13:33 | ECGEPIP ---
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
== END 2021-03-17 11:21 | disposition home or self-care (01) ==
LOC: M ED 07:10
DX: F15.13 Other stimulant abuse with withdrawal (principal); G89.29 Other chronic pain; Z91.018 Allergy to other foods; Z91.040 Latex allergy status; F17.210 Nicotine dependence, cigarettes, uncomplicated
CPT/HCPCS: 70450; 80048; 80076; 80143; 80307; 82077; 82550; 84443; 85025; 87631; 93005; 93041; 94760; 96361; 96374; 96375; 96376; 99285; J1885; J2765

== ENCOUNTER → 2022-01-11 | Outpatient (REF) | payer OTHER ==
[~2022-01-11] MED LIST changes: -CEFD1CAP8 PO; +CEFD300C41 PO
== END ==
LOC: M WUC 09:23
PROVIDERS: ATTEND Physician Assistant
DX: L02.31 Cutaneous abscess of buttock (principal)